=== PATIENT | male | born 1990 | race Caucasian/White ===

== ENCOUNTER 2018-07-19 10:33 | Emergency (ER) | payer MEDICAID, SELFPAY ==
[2018-07-19 10:33] VITALS: BP 120/68; PULSE 60; RESP 18; TEMP 36.6; O2SAT 100; BMI 29.4
--- NOTE | 2018-07-19 10:49 | ED.VISSUMM ---
- ER Visit Summary Date of Service: 07/19/18 Chief Complaint: Diarrhea, abdominal cramps History of Present Illness: The patient is a 27 M presents to the emergency department with diarrhea and abdominal cramping. Patient states that approximately 5 days ago, he began to have some mild abdominal cramping. He states since then, has had loose watery diarrhea. He states he is moved his bowels 5-10 times a day. Over the past 2 days, he had some worsening cramping and a few bouts of nausea. He states today, he felt like his throat was numb and his jaw was tight. He states no matter what he eats, does not really seem to change the pain. He has no history of Crohn's disease. He denies any history of ulcerative colitis. He said no recent travel. He denies any fevers or chills. He has not been on any recent antibiotics. He has not noticed any blood in the emesis or in the diarrhea. Physical Examination: Vital signs reviewed General: Well-nourished, well-developed Head: Normocephalic, atraumatic Eyes: Pupils equal and reactive, extraocular muscles intact Neck, supple, no lymphadenopathy Heart: Regular rate and rhythm Respiratory: No distress, clear bilaterally Abdomen: Soft, minimally tender diffusely without rebound or guarding, nondistended, no peritoneal signs Back: Nontender Extremities: Nontender, no edema, no cords Skin: Normal color no rash Neuro: Alert and oriented, no focal or lateralizing deficits Test Results: [] Emergency Department Course and Treatment: The patient symptoms do seem most consistent with gastroenteritis. He had loose watery diarrhea and a few bouts of vomiting. He has some minimal diffuse abdominal tenderness, but no focal tenderness. He has no rebound or guarding. He has no peritoneal signs. He is not tachycardic and is resting comfortably. IV was established. He was given fluids, analgesics, and antiemetics. I did obtain screening labs. CBC, chemistry, LFTs are all unremarkable. I did order stool studies, however the patient was unable to provide a stool sample. On reevaluation, he has a soft and nontender abdomen. At this time, I do for the patient is safe for discharge with outpatient supportive care. He will be treated with Bentyl, Imodium, and Zofran. I did senior genetic counselor him concerning symptoms and reasons to return. I also told him that if his pain worsens, migrated to his right lower quadrant, or has a fever to return to the emergency department within the next 24 hours. He is comfortable with this plan of care. Treatment Plan: [] Disposition: Discharge Impression: 1. Gastroenteritis This note was generated with [employer] dictation software. It may contain incorrect words, spelling, and punctuation that were not noted in review of the chart prior to signing ED Disposition - Plan for ED Patient: Chief Complaint: Abd Pain Instructions: ED Gastroenteritis Vs Food Poison Prescriptions: Loperamide [Imodium] 2 mg PO Q2H PRN PRN #30 cap PRN Reason: Diarrhea Ondansetron [Zofran Odt] 4 mg PO Q8H PRN PRN #10 tab PRN Reason: Nausea Dicyclomine HCl [Bentyl] 20 mg PO TIDAC #20 cap Referrals: Jose Toro MD [Primary Care Provider] -
[2018-07-19] MEDS: 0.9% Normal Saline 1,000 ML 1000 ML IV (10:53)
[2018-07-19] MEDS: Ondansetron 4 MG/2 ML Vial IV (10:53)
[2018-07-19] MEDS: Morphine 4 MG/ML Syringe IV (10:53)
[2018-07-19 11:06] LABS: Absolute Lymphocyte Count 2.35 X10^3/ul (0.83-4.51); Absolute Neutrophil Count 5.5 X10^3/uL (2.0-7.7); Basophil# 0.05 X10^3/uL; Basophil% 0.6 % (0-1); Eosinophil# 0.32 X10^3/uL; Eosinophils% 3.6 % (0-5); Hematocrit 40.3 % (40-54); Hemoglobin 13.7 g/dl (13.0-16.5); Lymphocyte # 2.35 X10^3/ul (4.0); Lymphocyte % 26.1 % (19-41); Mean Corpuscular Hgb 28.6 pg (27.0-32.0); Mean Corpuscular Volume 84.1 fL (80-94); Mean Platelet Vol. 9.7 fl (6.2-12.0); Monocyte# 0.68 X10^3/uL; Monocyte% 7.6 % (0-10); Neutrophil # 5.54 X10^3/uL (2.7-7.7); Neutrophil % 61.5 % (47-70); Platelet Count 255 K/mm3 (150-450); RBC Distribution Width CV 13.9 % (11.6-14.6); RBC Distribution Width SD 42.5 fl (35.1-43.9); Red Blood Count 4.79 M/mm3 (4.6-6.2)
[2018-07-19 11:07] LABS: Differential Indicated SCAN CRITERIA MET; POSITIVE COUNT NO; POSITIVE DIFFERENTIAL NO; POSITIVE MORPHOLOGY YES
[2018-07-19 11:12] LABS: AST(SGOT) 21 U/L (15-37); Alanine Aminotransfer ALT/SGPT 40 U/L (16-61); Albumin, Serum 4.1 g/dL (3.2-5.0); Alkaline Phosphatase 98 U/L (45-117); Anion Gap 5 (5-15); BUN 9 mg/dL (7-18); BUN/Creat Ratio 10.3 RATIO (10-20); Calcium,Total 8.7 mg/dL (8.5-10.1); Chloride 108 mmol/L (98-107); Creatinine, Serum 0.87 mg/dL (0.70-1.30); EST Glomerular Filtration Rate 113 mL/min (>60); Est Glom Filt Rate - Afr Amer 136 mL/min (>60); Estimated Creatinine Clearance 150.91 ml/min; Globulin 3.6 g/dL (2.2-4.2); Glucose 90 mg/dL (74-106); Lipase 157 U/L (73-393); Protein, Total 7.7 g/dL (6.4-8.2); Sodium Level 139 mmol/L (136-145)
[2018-07-19 11:44] VITALS: BP 123/56; PULSE 51; RESP 18; O2SAT 99
== END 2018-07-19 11:44 | disposition home or self-care (01) ==
PROVIDERS: Emergency Provider Emergency Medicine; Family Provider Family Medicine; PCP Family Medicine
DX: K52.9 Noninfective gastroenteritis and colitis, unspecified (principal); Z72.0 Tobacco use
CPT/HCPCS: 80048; 80076; 83690; 85025; 96361; 96374; 96375; 99283; J7030; A4216; J2405

== ENCOUNTER → 2019-05-15 15:20 | Outpatient (CLI) | payer SELFPAY ==
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
== END ==
LOC: MTRAD 15:23
PROVIDERS: Family Provider Family Medicine; PCP Family Medicine; Referring Provider Nurse Practitioner Adult Health; Visit Provider Nurse Practitioner Adult Health
DX: M54.9 Dorsalgia, unspecified (principal); M54.2 Cervicalgia
CPT/HCPCS: 72050; 72070

== ENCOUNTER 2019-11-24 11:01 | Emergency (ER) | payer OTHER, SELFPAY ==
[2019-11-24 11:04] VITALS: BP 131/80; PULSE 111; RESP 18; TEMP 37.1; O2SAT 100; BMI 24.3
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
--- NOTE | 2019-11-24 11:19 | ED.VISSUMM ---
- ER Visit Summary Date of Service: 11/24/19 Chief Complaint: Cough and fever History of Present Illness: The patient is a 28 M with significant past medical history. Patient states 3-day history of cough. At times he is coughing jags was causing him nausea and vomiting. Is also had some mild diarrhea. No shortness of breath. No significant abdominal pain. No dysuria. Physical Examination: Young male no acute distress vital signs stable afebrile. Pulse ox 9% on room air no signs hypoxia. H EENT exam moist his membranes. TMs normal. Posterior pharynx unremarkable. No drooling. No stridor. No trouble breathing or swallowing. Neck nontender no lymphadenopathy no meningismus. Lungs dry hacking cough but no rales, rhonchi or wheezing. Equal symmetrical. Heart regular rhythm rate about 110 no murmur. Abdomen soft nontender normal bowel sounds no peritoneal signs. Extremities moves all 4. Skin no rashes. Back nontender. Neurologically awake alert with no focal motor deficits. Test Results: Chest x-ray AP lateral views read by myself shows no acute abnormality. Normal cardiac silhouette. No pneumonia. Emergency Department Course and Treatment: Medically the patient has a viral syndrome. Given Gatorade to drink here in emergency department. He does not need intravenous hydration at this time. Treatment Plan: Fluids and rest. Tylenol Motrin for fever. Return if worse. Follow-up if not improving. Disposition: Discharge Impression: Acute viral syndrome This note was generated with [employer] dictation software. It may contain incorrect words, spelling, and punctuation that were not noted in review of the chart prior to signing ED Disposition - Plan for ED Patient: Referrals: Jose Toro MD [Primary Care Provider] -
--- NOTE | 2019-11-24 11:21 | ED.DEP ---
ED Disposition - Plan for ED Patient: Disposition: Home or Assisted Living Instructions: VIRAL SYNDROME (Adult) Prescriptions: Ondansetron [Zofran Odt] 4 mg PO Q8H PRN PRN #7 tab PRN Reason: Nausea Transmission Status: Pending to [facility] [place] [facility] Referrals: Jose Toro MD [Primary Care Provider] - 3-5 Days if not improving Additional Instructions: Plenty of fluids and rest. Alternate Tylenol Motrin for fever. Follow-up if not improving or return if worse. Zofran as needed for nausea.
== END 2019-11-24 12:05 | disposition home or self-care (01) ==
LOC: ED 11:29
PROVIDERS: Emergency Provider Emergency Medicine; PCP Family Medicine
DX: B34.9 Viral infection, unspecified (principal); R11.2 Nausea with vomiting, unspecified; R19.7 Diarrhea, unspecified; Z72.0 Tobacco use
CPT/HCPCS: 71046; 99282

== ENCOUNTER → 2021-02-03 14:39 | Outpatient (CLI) | payer SELFPAY ==
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
== END ==
PROVIDERS: PCP Family Medicine; Referring Provider Family Medicine; Visit Provider Family Medicine
DX: M79.602 Pain in left arm (principal); M79.642 Pain in left hand
CPT/HCPCS: 73090; 73130

== ENCOUNTER → 2024-08-04 | Outpatient (CLI) | payer SELFPAY ==
[2024-08-04 17:55] LABS: Ionized Calcium Order ORDER TUBE
[2024-08-04 18:19] LABS: Ionized Calcium 4.71 mg/dL (4.36-5.20)
[2024-08-04 18:22] LABS: Anion Gap 8 (5-15); BUN 7 mg/dL (7-18); BUN/Creat Ratio 9.1 RATIO (10-20); Calcium,Total 8.9 mg/dL (8.5-10.1); Chloride 105 mmol/L (98-107); Creatinine, Serum 0.77 mg/dL (0.70-1.30); EST Glomerular Filtration Rate 125 mL/min (>60); Est Glom Filt Rate - Afr Amer 151 mL/min (>60); Glucose 98 mg/dL (74-106); Magnesium 1.2 mg/dL (1.6-2.6); Potassium 3.8 mmol/L (3.5-5.1); Sodium Level 140 mmol/L (136-145)
== END | disposition home or self-care (01) ==
PROVIDERS: PCP Family Medicine; Referring Provider Nurse Practitioner Family; Visit Provider Nurse Practitioner Family
DX: E83.42 Hypomagnesemia (principal); E83.51 Hypocalcemia; E87.6 Hypokalemia
CPT/HCPCS: 36415; 80048; 82330; 83735